=== PATIENT | male | born 1955 | race Caucasian/White ===

== ENCOUNTER 2022-10-30 12:26 | Inpatient (IN) | payer OTHER, MEDICAID ==
[~2022-10-30] VITALS: Ht 172.7 cm; Wt 70.3 kg
[2022-10-30] VITALS (7 sets, daily range): BP systolic 112–151; PULSE 57–75; RESP 12–20; TEMP 96.7–98.4; O2SAT 90–98
[2022-10-30 13:10] LABS: BASOPHILS # (AUTO) 0.1 K/uL (0.0-0.2); BASOPHILS % (AUTO) 0.9 % (0.0-2.0); EOSINOPHILS # (AUTO) 0.4 K/uL (0.0-0.4); EOSINOPHILS % (AUTO) 4.9 % (0.0-4.0); HEMATOCRIT 49.3 % (36-54); HEMOGLOBIN 16.5 g/dL (14.0-18.0); LYMPHOCYTES # (AUTO) 2.9 K/uL (1.0-5.5); LYMPHOCYTES % (AUTO) 30.9 % (20.5-51.5); MEAN CORPUSCULAR HEMOGLOBIN 30 pg (27-31); MEAN CORPUSCULAR HGB CONC 34 % (32-36); MEAN CORPUSCULAR VOLUME 90 fL (79.0-98.0); MONOCYTES # (AUTO) 0.7 K/uL (0.0-1.0); MONOCYTES % (AUTO) 7.9 % (1.7-9.3); NEUTROPHILS # (AUTO) 5.1 K/uL (1.8-7.7); NEUTROPHILS % (AUTO) 55.4 % (40.0-70.0); PLATELET COUNT (AUTO) 212 K/uL (130-430); RED BLOOD CELL COUNT(AUTO) 5.46 MIL/uL (4.2-6.2); RED CELL DISTRIBUTION WIDTH 13.8 % (9.0-15.0); WHITE BLOOD COUNT (AUTO) 9.2 K/uL (4.8-10.8)
[2022-10-30 13:24] LABS: ANION GAP 2 (5-15); CALCIUM 9.2 mg/dL (8.4-11.0); CARBON DIOXIDE 35 mmol/L (23-29); CHLORIDE 101 mmol/L (98-107); CREATININE 0.81 mg/dL (0.55-1.30); GFR AFRICAN AMERICAN 123 mL/min (>90); GLUCOSE 103 mg/dL (74-106); POTASSIUM 4.3 mmol/L (3.5-5.1); SODIUM SERUM 138 mmol/L (136-145); UREA NITROGEN, BLOOD 18 mg/dL (8-21)
[2022-10-30 13:25] LABS: GFR NON AFRICAN-AMERICAN 102 mL/min (>90)
[2022-10-30 13:28] LABS: PROTHROMBIN TIME 10.4 SECS (9.5-12.5)
[2022-10-30 13:31] LABS: ALANINE AMINOTRANSFERASE 25 U/L (12-78); ASPARTATE AMINOTRANSFERASE 19 U/L (10-37); CREATINE KINASE, TOTAL 163 U/L (39-308); PHOSPHORUS 3.1 mg/dL (2.7-4.5); TOTAL BILIRUBIN 1.2 mg/dL (0.0-1.0); TOTAL PROTEIN, SERUM 7.9 g/dL (6.4-8.3)
[2022-10-30] MEDS ORDERED: AMIODARONE HCL 450 MG in D5W 241 ML IV ONE (13:45)
[2022-10-30] MEDS ORDERED: AMIODARONE HCL 150 MG in D5W 97 ML IV ONE (13:45)
[2022-10-30] MEDS ORDERED: OMEP20CA15 PO (15:38)
[2022-10-30] MEDS ORDERED: NAPR-688 PO (15:38)
[2022-10-30] MEDS ORDERED: lisinopril/hctz PO (15:38)
[2022-10-30] MEDS ORDERED: LIP20 PO (15:38)
[2022-10-30] MEDS ORDERED: LORazepam 2 MG/ML VIAL IVP PRN (19:45)
[2022-10-30] MEDS ORDERED: ONDANSETRON HCL 4 MG/2 ML VIAL IVP PRN (19:45)
[2022-10-30] MEDS ORDERED: HYDROcodone/ACETAMIN 10-325 MG TAB PO PRN (19:45)
[2022-10-30] MEDS ORDERED: ACETAMINOPHEN 325 MG TABLET PO PRN ×2 (19:45)
[2022-10-30] MEDS ORDERED: NALOXONE HCL 0.4 MG/ML AMP (NARCAN) IVP PRN ×2 (19:45)
[2022-10-30] MEDS ORDERED: HYDROcodone/ACETAMIN 5-325 MG TAB (NORCO/ VICODIN) PO PRN (19:45)
[2022-10-30] MEDS ORDERED: lisinopriL 20 MG TABLET PO ONE (20:00)
[2022-10-30] MEDS: NAPROXEN 250 MG TABLET PO SCH (20:41)
[2022-10-30] MEDS ORDERED: ATORVASTATIN 20 MG TABLET PO SCH (21:00)
[2022-10-30] MEDS ORDERED: AMIODARONE HCL 450 MG in D5W 241 ML IV SCH (21:00)
[2022-10-30] MEDS: NORMAL SALINE 5 ML DISP.SYRIN IVF SCH (21:31)
[2022-10-31] VITALS (23 sets, daily range): BP systolic 108–137; PULSE 49–65; RESP 12–24; TEMP 97.3–98.6; O2SAT 90–98
[2022-10-31 05:40] LABS: BASOPHILS # (AUTO) 0.1 K/uL (0.0-0.2); BASOPHILS % (AUTO) 0.9 % (0.0-2.0); EOSINOPHILS # (AUTO) 0.5 K/uL (0.0-0.4); HEMATOCRIT 48.6 % (36-54); HEMOGLOBIN 16.5 g/dL (14.0-18.0); LYMPHOCYTES # (AUTO) 2.2 K/uL (1.0-5.5); LYMPHOCYTES % (AUTO) 26.5 % (20.5-51.5); MEAN CORPUSCULAR HEMOGLOBIN 30 pg (27-31); MEAN CORPUSCULAR HGB CONC 34 % (32-36); MEAN CORPUSCULAR VOLUME 90 fL (79.0-98.0); MONOCYTES # (AUTO) 0.5 K/uL (0.0-1.0); MONOCYTES % (AUTO) 5.9 % (1.7-9.3); NEUTROPHILS # (AUTO) 5.1 K/uL (1.8-7.7); NEUTROPHILS % (AUTO) 60.7 % (40.0-70.0); PLATELET COUNT (AUTO) 194 K/uL (130-430); RED BLOOD CELL COUNT(AUTO) 5.42 MIL/uL (4.2-6.2); RED CELL DISTRIBUTION WIDTH 13.4 % (9.0-15.0); WHITE BLOOD COUNT (AUTO) 8.3 K/uL (4.8-10.8)
[2022-10-31] MEDS: NORMAL SALINE 5 ML DISP.SYRIN IVF SCH ×2 (06:00→13:49)
[2022-10-31 06:02] LABS: CALCIUM 8.7 mg/dL (8.4-11.0); CREATININE 0.53 mg/dL (0.55-1.30); POTASSIUM 4.5 mmol/L (3.5-5.1)
[2022-10-31] MEDS ORDERED: AMIODARONE HCL 200 MG TABLET PO SCH (09:00)
[2022-10-31] MEDS ORDERED: HYDROCHLOROTHIAZIDE 25 MG TABLET (HCTZ) PO SCH (09:00)
[2022-10-31] MEDS ORDERED: PANTOPRAZOLE SODIUM 40 MG TAB PO SCH (09:00)
[2022-10-31] MEDS ORDERED: OMEPRAZOLE Non-Formulary 20 MG CAPSULE.DR PO SCH (09:00)
[2022-10-31] MEDS: NAPROXEN 250 MG TABLET PO SCH (09:07)
[2022-10-31] MEDS ORDERED: AMIO400T5 PO (17:53)
[2022-10-31] MEDS ORDERED: AMIO200T66 PO (17:53)
== END 2022-10-31 20:55 | disposition home or self-care (01) | DRG 309 ==
LOC: SED 12:26 → SIC 15:27
PROVIDERS: ADMIT Preventive Medicine Preventive Medicine/Occupational Environmental Medicine; ATTEND Preventive Medicine Preventive Medicine/Occupational Environmental Medicine
DX: I47.20 Ventricular tachycardia, unspecified (principal); E87.1 Hypo-osmolality and hyponatremia; R65.10 Systemic inflammatory response syndrome (SIRS) of non-infectious origin without acute organ dysfunction; I49.3 Ventricular premature depolarization; E80.6 Other disorders of bilirubin metabolism; E78.5 Hyperlipidemia, unspecified; I10 Essential (primary) hypertension; K80.20 Calculus of gallbladder without cholecystitis without obstruction; Z90.49 Acquired absence of other specified parts of digestive tract; Z85.46 Personal history of malignant neoplasm of prostate
CPT/HCPCS: 36415; 71045; 80048; 80053; 82550; 83735; 84100; 84484; 85025; 85610-TC; 85730-TC; 93005; 93306; 99285; J0282; J7060